=== PATIENT | female | born 1985 ===

== ENCOUNTER 2017-02-03 14:20 | Emergency (ER) | payer MEDICAID, OTHER ==
[2017-02-03 14:22] VITALS: BMI 30.1
[2017-02-03 14:24] VITALS: O2SAT 99
[2017-02-03] MEDS ORDERED: Oxycodone/Acetaminophen 5/325 mg Tab PO STA (14:49)
[2017-02-03] MEDS ORDERED: Oxycodone/Acetaminophen 5/325 mg Tab ONE (14:56)
--- NOTE | 2017-02-03 15:01 | C.PDOC ---
History Of Present Illness 31 yo female, no prior hx, presnets with low back pain. as per pt, has had pain intermittantly "for a while" but worsened for last week. as per pt, pain going down b/l legs. no saddle anesthesia, urinary changes. noted seen in er a few days ago. no fevers or other complaints Time Seen by Provider: 02/03/17 14:25 Chief Complaint (Nursing): Back Pain Past Medical History Reviewed: Historical Data, Nursing Documentation, Vital Signs Vital Signs: Last Vital Signs Temp 97.8 F 02/03/17 14:22 Pulse 88 02/03/17 14:22 Resp 18 02/03/17 14:22 BP 103/72 02/03/17 14:22 Pulse Ox 99 02/03/17 15:02 - Medical History PMH: Denies: Anxiety Family History: States: Unknown Family Hx - Social History Hx Alcohol Use: No Hx Substance Use: No - Immunization History Hx Tetanus Toxoid Vaccination: No Hx Influenza Vaccination: No Hx Pneumococcal Vaccination: No Review Of Systems Musculoskeletal: Positive for: Back Pain Physical Exam - Physical Exam Appears: Well, No Acute Distress Skin: Normal Color, Warm, Dry Eye(s): bilateral: Normal Inspection, PERRL, EOMI Nose: Normal Throat: Normal Neck: Normal Cardiovascular: Rhythm Regular Respiratory: Normal Breath Sounds Gastrointestinal/Abdominal: Normal Exam Back: Normal Inspection, Vertebral Tenderness, Paraspinal Tenderness, Other (no saddle anesthesia) Extremity: Normal ROM ED Course And Treatment O2 Sat by Pulse Oximetry: 99 Medical Decision Making Medical Decision Making: ct neg for fracture. no saddle anesthesia, urinary complaints. no clincal concern for cord compression. stable for d/c Disposition - Disposition Disposition: HOME/ ROUTINE Disposition Time: 16:19 Condition: STABLE Additional Instructions: please follow up with your doctor. return to er with worsening symptoms or concerns. Prescriptions: Cyclobenzaprine [Cyclobenzaprine HCl] 10 mg PO TID PRN #20 tab PRN Reason: Muscle Spasm Naproxen 500 mg PO BID PRN #14 tab PRN Reason: Pain, Mild (1-3) oxyCODONE/Acetaminophen [Percocet 5/325 mg Tab] 1 tab PO Q6 PRN #10 tab PRN Reason: Pain, Severe (8-10) Instructions: Acute Low Back Pain (DC) - Clinical Impression Clinical Impression: Low back pain
[2017-02-03 15:10] LABS: RBC URINE 2 /hpf (0-3); URINE BILIRUBIN NEGATIVE (NEGATIVE); URINE BLOOD NEGATIVE (NEGATIVE); URINE COLOR Yellow (YELLOW); URINE GLUCOSE (UA) NORMAL (Normal); URINE KETONE TRACE mg/dL (NEGATIVE); URINE LEUKOCYTE ESTERASE NEG Leu/uL (Negative); URINE PROTEIN 1+ mg/dL (NEGATIVE); URINE UROBILINOGEN NORMAL mg/dL (0.2-1.0); WBC URINE < 1 /hpf (0-5)
--- NOTE | 2017-02-03 16:12 | CT ---
PROCEDURE: CT Lumbar Spine without contrast HISTORY: low back pain COMPARISON: None. TECHNIQUE: Axial computed tomography images were obtained of the lumbar spine without the use of intravenous contrast. Coronal and sagittal reformatted images were created and reviewed. Radiation dose: Total exam DLP = 1076.17 mGy-cm. FINDINGS: VERTEBRAE: Vertebral bodies maintained in height. Transverse processes and posterior elements are intact. DISCS/SPINAL CANAL/NEURAL FORAMINA: L1-2: Unremarkable. L2-3: Unremarkable. L3-4: Unremarkable. L4-5: Right parasagittal disc protrusion superimposed upon mild diffuse disc bulge. No spinal stenosis or neural foraminal stenosis. L5-S1: Left parasagittal disc protrusion superimposed upon diffuse disc bulge. Mild bilateral degenerative facet arthropathy. Mild to moderate bilateral neural foraminal stenosis. No central spinal stenosis. PARASPINAL SOFT TISSUES: Unremarkable. OTHER FINDINGS: None. IMPRESSION: Right parasagittal disc protrusion superimposed upon disc bulge at L4-5. Left parasagittal disc protrusion superimposed upon disc bulge at L5-S1 with [id number] bilateral neural foraminal stenosis. No fracture.
[2017-02-03 16:27] VITALS: BP 117/62; PULSE 67; RESP 17; TEMP 98.2
== END 2017-02-03 16:48 | disposition home or self-care (01) ==
LOC: C.ER 14:20
DX: M54.5 Low back pain (principal)
CPT/HCPCS: 72131; 81001; 84703; 96372; 99284; J1885

== ENCOUNTER 2017-02-05 14:25 | Emergency (ER) | payer MEDICAID, OTHER ==
[2017-02-05 14:25] VITALS: BMI 30.1
--- NOTE | 2017-02-05 15:00 | C.PDOC ---
History Of Present Illness 31-year-old female, presents to the emergency department for re-evaluation of lower back pain for past 2 weeks. Pt was seen here in ED twice for past 2 weeks and received Rx: Flexeril, Naproxyn, Percocet without improvement in pain. Patient reports she has been experiencing diffuse lower back pain radiating down to B/L legs gradually worse over past week, despite of given medication. Pain is intermittent, worse with movement. Pt admits, similar sx in past " but never that worse". Otherwise, pt denies known recent trauma or injury, heavy lifting, fever, chills, abd. pain, N?V, denies saddle anesthesia, incontinence, denies numbness/weakness to B/L LEs. Ambulate to ED, appears in pain. Records from p[revious visit to ED on 01/23/17 and 02/03/17 review. UA, imaging performed with normal results. Discussed with patient risk of opiate dependance and risk of developing physical and psychological dependance. Time Seen by Provider: 02/05/17 14:50 Chief Complaint (Nursing): Back Pain History Per: Patient History/Exam Limitations: no limitations Onset/Duration Of Symptoms: Intermittent Episodes (several months ), Worse Since (3 days) Current Symptoms Are (Timing): Still Present Past Medical History Reviewed: Historical Data, Nursing Documentation, Vital Signs Vital Signs: Last Vital Signs Temp 98.4 F 02/05/17 16:37 Pulse 71 02/05/17 16:37 Resp 18 02/05/17 16:37 BP 109/73 02/05/17 16:37 Pulse Ox 96 02/05/17 16:37 - Medical History PMH: Back Problems Family History: States: No Known Family Hx - Social History Hx Alcohol Use: No Hx Substance Use: No - Immunization History Hx Tetanus Toxoid Vaccination: No Hx Influenza Vaccination: No Hx Pneumococcal Vaccination: No Review Of Systems Except As Marked, All Systems Reviewed And Found Negative. Gastrointestinal: Negative for: Nausea, Vomiting Genitourinary: Negative for: Incontinence Musculoskeletal: Positive for: Back Pain (Lower) Neurological: Negative for: Weakness Physical Exam - Physical Exam Appears: Well, Non-toxic, No Acute Distress Skin: Normal Color, Warm, Dry, No Rash, No Ecchymosis Eye(s): bilateral: Normal Inspection Nose: Normal Throat: Normal Neck: Normal, Normal ROM, Supple Cardiovascular: Rhythm Regular Respiratory: Normal Breath Sounds Gastrointestinal/Abdominal: Normal Exam, Soft, No Tenderness, No Distention, No Guarding Back: Normal Inspection, No CVA Tenderness, No Vertebral Tenderness, Decreased ROM (to bending, lateral rotation due to pain over L-spine), Muscle Spasm ( lumbar paraspinal), Paraspinal Tenderness (diffuse lumbar paraspinal tenderness) , Straight Leg Raising (B/L legs at 40 degrees.) Extremity: Normal ROM, No Pedal Edema, No Deformity, No Swelling Extremity: Bilateral: Atraumatic Neurological/Psych: Oriented x3, Normal Speech, Normal Motor, Normal Sensation, Normal Reflexes ED Course And Treatment O2 Sat by Pulse Oximetry: 98 Pulse Ox Interpretation: Normal - CT Scan/US CT - Lumbar Spine Other Rad Studies (CT/US): Read By Radiologist, Radiology Report Reviewed CT/US Interpretation: 02/03/2017. PROCEDURE: CT Lumbar Spine without contrast. HISTORY: low back pain. COMPARISON: None. TECHNIQUE: Axial computed tomography images were obtained of the lumbar spine without the use of intravenous contrast. Coronal and sagittal reformatted images were created and reviewed. Radiation dose: Total exam DLP = 1076.17 mGy-cm. FINDINGS: VERTEBRAE: Vertebral bodies maintained in height. Transverse processes and posterior elements are intact. DISCS/SPINAL CANAL/NEURAL FORAMINA: L1-2: Unremarkable. L2-3: Unremarkable. L3-4: Unremarkable. L4-5: Right parasagittal disc protrusion superimposed upon mild diffuse disc bulge. No spinal stenosis or neural foraminal stenosis. L5-S1: Left parasagittal disc protrusion superimposed upon diffuse disc bulge. Mild bilateral degenerative facet arthropathy. Mild to moderate bilateral neural foraminal stenosis. No central spinal stenosis. PARASPINAL SOFT TISSUES: Unremarkable. OTHER FINDINGS: None. IMPRESSION: Right parasagittal disc protrusion superimposed upon disc bulge at L4-5. Left parasagittal disc protrusion superimposed upon disc bulge at L5-S1 with [id number] bilateral neural foraminal stenosis. No fracture. Progress Note: On re-eavulation, pt is afebrile, hemodynamicaly stable. Non- toxic. AMbulatory in ED. Abd: benign. Neurologicaly intact. Pt has clinical findings c/w lumbar radiculopathy. Pt advised on pain control and need to F/U with PMD, PM in 1-2 days. Disposition Counseled Patient/Family Regarding: Diagnosis, Need For Followup - Disposition Referrals: [facility] [Outside] [facility] [Outside] [facility] [Provider Group] Disposition: HOME/ ROUTINE Disposition Time: 16:01 Condition: STABLE Additional Instructions: LIGHT DUTY TO LOWER BACK BEDREST FOR 2-3 DAYS FOLLOW UP WITH PMD AND PAIN MANAGEMENT IN 1-2 DAYS FOR RE-EVALUATION AND PAIN CONTROL. RETURN IF ANY NEW CHANGES. Prescriptions: Prednisone [Deltasone] 40 mg PO BID #6 tablet Instructions: Lumbar Radiculopathy (ED), Lumbar Disc Herniation (ED) - Clinical Impression Clinical Impression: Lumbar radiculopathy
[2017-02-05] MEDS ORDERED: diaZEpam 10 mg/2 ml Inj IVP STA (15:10)
[2017-02-05] MEDS ORDERED: diaZEpam 10 mg/2 ml Inj ONE (15:34)
[2017-02-05 16:40] VITALS: BP 109/73; PULSE 71; RESP 18; TEMP 98.4
[2017-02-05 16:43] VITALS: O2SAT 98
== END 2017-02-05 17:01 | disposition home or self-care (01) ==
LOC: C.ER 14:25
DX: M54.16 Radiculopathy, lumbar region (principal)
CPT/HCPCS: 96374; 96375; 99284; J2930; J3360

== ENCOUNTER 2017-05-17 20:49 | Emergency (ER) | payer MEDICAID, OTHER ==
[2017-05-17 20:49] VITALS: BMI 30.1
[2017-05-17 21:00] VITALS: BP 124/80; PULSE 93; RESP 16; TEMP 98; O2SAT 97
--- NOTE | 2017-05-17 21:16 | C.PDOC ---
History Of Present Illness 31 yo F c/o 1 month h/o atraumatic R elbow pain, states that she has seen her pmd regarding her symptoms and was Rx nsaids, has been taking with no relief, and pain continues. 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 Denies any numbness, decrease in ROM, edema, other joint pain, fever, numbness or weakness. PMD Joe Time Seen by Provider: 05/17/17 21:02 Chief Complaint (Nursing): Upper Extremity Problem/Injury Past Medical History Vital Signs: Last Vital Signs Temp 98.0 F 05/17/17 20:55 Pulse 93 H 05/17/17 20:55 Resp 16 05/17/17 20:55 BP 124/80 05/17/17 20:55 Pulse Ox 97 05/17/17 20:55 - Medical History PMH: Back Problems Denies: Anxiety Family History: States: Unknown Family Hx - Social History Hx Alcohol Use: No Hx Substance Use: No - Immunization History Hx Tetanus Toxoid Vaccination: No Hx Influenza Vaccination: No Hx Pneumococcal Vaccination: No Review Of Systems Constitutional: Negative for: Fever, Chills Cardiovascular: Negative for: Chest Pain, Palpitations, Orthopnea Respiratory: Negative for: Cough, Shortness of Breath, Wheezing Gastrointestinal: Negative for: Nausea, Vomiting, Abdominal Pain Musculoskeletal: Positive for: Arm Pain. Negative for: Neck Pain, Back Pain Skin: Negative for: Rash, Lesions, Bruising Neurological: Negative for: Weakness, Numbness Physical Exam - Physical Exam Appears: Well, Non-toxic, In Acute Distress (mild painful distress) Skin: Normal Color, Warm, Dry, No Rash Head: Atraumatic, Normacephalic Neck: Normal, Normal ROM, No Midline Cervical Tenderness Chest: Symmetrical, No Tenderness Cardiovascular: Rhythm Regular, No Murmur Respiratory: Normal Breath Sounds, No Decreased Breath Sounds, No Rales, No Rhonchi, No Wheezing Back: Normal Inspection, No CVA Tenderness, No Vertebral Tenderness Extremity: Normal ROM, No Tenderness, Capillary Refill (normal), No Deformity, No Swelling, Other (R arm: +mild point tenderness to the dorsal aspect of the elbow, no edema, FROM) Extremity: Bilateral: Atraumatic Pulses: Left Radial: Normal, Right Radial: Normal Neurological/Psych: Oriented x3, Normal Speech, Normal Cognition, Normal Cranial Nerves, Normal Motor, Normal Sensation ED Course And Treatment O2 Sat by Pulse Oximetry: 97 Medical Decision Making Medical Decision Makin yo F c/o 1 month h/o atraumatic R elbow pain, based on history and exam, likely overuse syndrome such as tennis elbow. Sam wrap and sling applied. Pt medicated with toradol IM and flexeril PO. Pt instructed to apply ice, rest, continue nsaids for pain, given Rx for flexeril. Advised to f/u with pmd and ortho referral provided in 1-2 days without fail for re-evaluation, instructed to return to the ER at any time for any new or worsening symptoms. Pt verbalize understanding of instructions, given the opportunity to ask any questions. 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
== END 2017-05-17 21:51 | disposition home or self-care (01) ==
LOC: C.ER 20:49
DX: M77.11 Lateral epicondylitis, right elbow (principal)
CPT/HCPCS: 96372; 99284; J1885

== ENCOUNTER 2017-08-07 18:55 | Emergency (ER) | payer OTHER ==
[2017-08-07 18:56] VITALS: BMI 30.1
--- NOTE | 2017-08-07 21:52 | C.PDOC ---
History Of Present Illness 31 year old female presents to the ED with family member for evaluation of pain and numbness to her left arm which has been occurring intermittently for around 1 year. Patient notes her symptoms originate in her arm and radiate to her shoulder and neck. Patient has also experienced similar symptoms in her right arm and bilateral lower extremities but notes that she does not have pain to these areas at this time. Patient was recently evaluated at [facility] for similar complaints and is awaiting results for blood tests and radiologic studies which will be available on 08/30. Patient has not taken any medicine at home for her symptoms. She denies fever, chills, recent trauma/ injury/falls or heavy lifting. Time Seen by Provider: 08/07/17 21:09 Chief Complaint (Nursing): Upper Extremity Problem/Injury History Per: Patient, Family History/Exam Limitations: no limitations Onset/Duration Of Symptoms: Intermittent Episodes, Other (around 1 year ) Current Symptoms Are (Timing): Still Present Reports Recently: Seen In ED, Treated By A Physician Additional History Per: Patient, Family Past Medical History Reviewed: Historical Data, Nursing Documentation, Vital Signs Vital Signs: Last Vital Signs Temp 97.4 F L 08/07/17 21:54 Pulse 77 08/07/17 21:54 Resp 16 08/07/17 21:54 BP 102/68 08/07/17 21:54 Pulse Ox 96 08/07/17 22:09 - Medical History PMH: Back Problems Denies: Anxiety Surgical History: No Surg Hx Family History: States: Unknown Family Hx - Social History Hx Alcohol Use: No Hx Substance Use: No - Immunization History Hx Tetanus Toxoid Vaccination: No Hx Influenza Vaccination: No Hx Pneumococcal Vaccination: No Review Of Systems Constitutional: Negative for: Fever, Chills Musculoskeletal: Positive for: Shoulder Pain (left) Neurological: Positive for: Numbness (left arm, radiating to left shoulder and left side of neck ) Physical Exam - Physical Exam Appears: Non-toxic, No Acute Distress Skin: Normal Color, Warm, Dry Head: Atraumatic, Normacephalic Eye(s): bilateral: Normal Inspection, EOMI Neck: Normal ROM, Supple Chest: Symmetrical, No Deformity, No Tenderness Cardiovascular: Rhythm Regular, No Murmur Respiratory: Normal Breath Sounds, No Rales, No Rhonchi, No Wheezing Extremity: Normal ROM, No Tenderness, Capillary Refill (less than 2 seconds ), No Deformity, No Swelling, No Other (erythema or hematoma) Extremity: Bilateral: Atraumatic Pulses: Left Brachial: Normal, Right Brachial: Normal, Left Radial: Normal, Right Radial: Normal Neurological/Psych: Normal Speech, Normal Cognition, Normal Motor, Normal Sensation Gait: Steady ED Course And Treatment O2 Sat by Pulse Oximetry: 96 (on RA) Pulse Ox Interpretation: Normal Progress Note: On reassessment, patient is resting comfortably, showing no signs of distress and is stable for discharge. Patient is advised patient to take NSAIDs for pain relief. Patient is also advised to follow up with her PMD and with [facility] for study results in a timely manner for further evaluation. 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 - Scribe Statement The provider has reviewed the documentation as recorded by the Scribe (Mallika Damon) All medical record entries made by the Scribe were at my direction and personally dictated by me. I have reviewed the chart and agree that the record accurately reflects my personal performance of the history, physical exam, medical decision making, and the department course for this patient. I have also personally directed, reviewed, and agree with the discharge instructions and disposition.
[2017-08-07 21:55] VITALS: BP 102/68; PULSE 77; RESP 16; TEMP 97.4
[2017-08-07 22:01] VITALS: O2SAT 96
== END 2017-08-07 21:59 | disposition home or self-care (01) ==
LOC: C.ER 18:55
DX: M79.602 Pain in left arm (principal)

== ENCOUNTER 2018-01-08 21:36 | Emergency (ER) | payer OTHER ==
[2018-01-08 21:36] VITALS: BMI 30.1
[2018-01-08 21:45] VITALS: BP 129/88; PULSE 98; RESP 20; TEMP 97.5; O2SAT 98
--- NOTE | 2018-01-08 23:53 | C.PDOC ---
History Of Present Illness 32 year old female presents to the ER with a complaint of left shoulder pain since yesterday. Patient states she was arguing with her family yesterday, she did not get involved in any physical confrontation but notes she was gesturing a lot and now feels cramping to the left shoulder. Patient reports having a Hx of similar symptoms in the past. Contrary to triage, patient denies chest pain, SOB, dizziness, or diaphoresis. Time Seen by Provider: 01/08/18 22:14 Chief Complaint (Nursing): Chest Pain History Per: Patient History/Exam Limitations: no limitations Onset/Duration Of Symptoms: Days Current Symptoms Are (Timing): Still Present Quality: Other (Cramping) Associated Symptoms: denies: Nausea, Dyspnea, Diaphoresis, Syncope Modifying Factors: None Exacerbating Factors: None Alleviating Factors: None Recent travel outside of the [place]: No Past Medical History Reviewed: Historical Data, Nursing Documentation, Vital Signs Vital Signs: Last Vital Signs Temp 97.5 F L 01/08/18 21:39 Pulse 98 H 01/08/18 21:39 Resp 20 01/08/18 21:39 BP 129/88 01/08/18 21:39 Pulse Ox 98 01/09/18 00:43 - Medical History PMH: Back Problems Family History: States: Unknown Family Hx - Social History Hx Alcohol Use: No Hx Substance Use: No - Immunization History Hx Tetanus Toxoid Vaccination: No Hx Influenza Vaccination: No Hx Pneumococcal Vaccination: No Review Of Systems Cardiovascular: Negative for: Chest Pain, Palpitations Respiratory: Negative for: Shortness of Breath Gastrointestinal: Negative for: Nausea, Vomiting Musculoskeletal: Positive for: Shoulder Pain Neurological: Negative for: Dizziness Physical Exam - Physical Exam Appears: Non-toxic, No Acute Distress Skin: Normal Color, Warm, Dry Head: Atraumatic, Normacephalic Eye(s): bilateral: Normal Inspection Extremity: Normal ROM (x4), Tenderness (Left anterior shoulder), No Deformity, No Swelling Pulses: Left Radial: Normal, Right Radial: Normal Neurological/Psych: Oriented x3, Normal Speech, Normal Motor, Normal Sensation ED Course And Treatment ECG: Interpreted By Me, Viewed By Me ECG Rhythm: Sinus Rhythm ECG Interpretation: Normal Rate From EC O2 Sat by Pulse Oximetry: 98 (room air) Pulse Ox Interpretation: Normal - Other Rad Left Shoulder X-ray X-Ray: Interpreted by Me, Viewed By Me Interpretation: No acute fractures or dislocations. Progress Note: EKG and left shoulder x-ray ordered, results were negative. Toradol administered for pain. Patient reports relief of pain, she is resting comfortably in the ER in no acute distress, vitals are stable. Patient's symptoms do not appear to be cardiac by presentation,and no risk factors for PE. Pt with normal vitals, will be discharged home with instructions to follow up with PMD or return if symptoms worsen. 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 - Scribe Statement The provider has reviewed the documentation as recorded by the Scribe Hoang English All medical record entries made by the Scribe were at my direction and personally dictated by me. I have reviewed the chart and agree that the record accurately reflects my personal performance of the history, physical exam, medical decision making, and the department course for this patient. I have also personally directed, reviewed, and agree with the discharge instructions and disposition.
--- NOTE | 2018-01-09 07:52 | CARD ---
APPROVED REPORT EKG Measurement Heart [id number] <Conclusion> Normal sinus rhythm Normal ECG
--- NOTE | 2018-01-09 10:28 | RAD ---
PROCEDURE: Radiographs of the Left Shoulder HISTORY: Pain COMPARISON: No prior. FINDINGS: BONES: Bone alignment and mineralization are normal. There is no acute displaced fracture or bone destruction JOINTS: Normal. Glenohumeral and acromioclavicular joints preserved. No osteoarthritis. SOFT TISSUES: Normal. OTHER FINDINGS: None. IMPRESSION: No acute fracture or dislocation.
== END 2018-01-08 23:58 | disposition home or self-care (01) ==
LOC: C.ER 21:36
DX: M25.512 Pain in left shoulder (principal)
CPT/HCPCS: 73030; 93005; 96372; 99283; J1885